=== PATIENT | male | born 1950 | race Caucasian/White ===

== ENCOUNTER 2020-01-25 08:41 | Day surgery (SDC) | payer BC, MEDICARE ==
[2020-01-25] MEDS ORDERED: Midazolam 1 MG/ML 2 ML SDV ONE (09:08)
[2020-01-25] MEDS ORDERED: fentaNYL 100 MCG/2 ML SDV ONE (09:08)
[2020-01-25] MEDS ORDERED: Propofol 200 MG/20 ML SDV ONE ×2 (09:08→09:53)
[2020-01-25] MEDS ORDERED: Dextrose 5%-Lactated Ringers 1,000 ML IV SCH (10:30)
--- NOTE | 2020-02-04 15:00 | OR ---
DATE OF PROCEDURE: 01/25/2020 SURGEON: Jasson Welch MD PREOPERATIVE DIAGNOSIS: Indications for screening colonoscopy. POSTOPERATIVE DIAGNOSIS: Normal colonoscopic examination. OPERATIVE PROCEDURE: Flexible colonoscopy. ANESTHESIA: IV sedation. INDICATION FOR PROCEDURE: A 69-year-old presenting with indication for screening colonoscopy. He has no family or personal history of colonic neoplasia. Plan is to proceed with a colonoscopy with biopsies and polypectomy as indicated. Potential risks including bleeding and perforation were discussed and the patient wishes to proceed. DETAILS OF PROCEDURE: The patient was taken to the operating room and placed in a left lateral decubitus position. IV sedation was administered, after which the initial digital rectal exam was performed which was unremarkable. Colonoscope was then passed into the rectum with retroflexion revealing uncomplicated hemorrhoidal columns. The scope was then eventually passed to the level of the cecum. The patient did have some moderately good prep with there being quite a bit of liquid stool present which would potentially cause nonvisualization of some small polyps, otherwise there was no evident pathology, specifically no diverticular disease. No areas of colitis. No polyps or other signs of neoplasia were seen. The scope was then withdrawn. The above findings were reconfirmed and the procedure then concluded. Recommendation would be to repeat the colonoscopy in 10 years, i.e. when he is around 79 assuming his health at that time remains reasonably good. Jasson Welch MD /[id number]
== END 2020-01-25 11:06 | disposition home or self-care (01) ==
LOC: JP.SDS 08:41
PROVIDERS: ATTEND Surgery
DX: Z12.11 Encounter for screening for malignant neoplasm of colon (principal); K64.9 Unspecified hemorrhoids
CPT/HCPCS: G0121; J2250; J2704; J3010; J7121

== ENCOUNTER 2020-09-06 16:27 | Emergency (ER) | payer MEDICARE ==
--- NOTE | 2020-09-06 17:25 | EDM.PDOC ---
ED HPI GENERAL MEDICAL PROBLEM - General Chief Complaint: Skin Complaint Stated Complaint: RASH ON BOTH ARMS Time Seen by Provider: 09/06/20 17:15 Source of Information: Reports: Patient, Old Records History Limitations: Reports: No Limitations - History of Present Illness INITIAL COMMENTS - FREE TEXT/NARRATIVE: 69 yo male here with a red rash on both arms. It began over a week ago following digging in weeds with short sleeve shirt on. It was itchy and he was applying topical Cortisone cream with improvement. Then a day or two ago he applied "Jewel weed" cream and now the arms are much redder, although not more itchy. He has stopped the Jewel weed cream. Is worried about cellulitis. He has not had a fever. Onset: Gradual Onset Date: 09/05/20 Duration: Day(s): (1+), Constant Location: Reports: Upper Extremity, Left, Upper Extremity, Right Quality: Reports: Dull Severity: Mild Improves with: Reports: None Worsens with: Reports: Other (? Jewel weed cream) Context: Reports: Other (See HPI) Associated Symptoms: Reports: No Other Symptoms - Related Data Allergies Allergy/AdvReac Type Severity Reaction Status Date / Time amoxicillin Allergy Severe Swollen Verified 09/06/20 17:06 Tongue Penicillins Allergy Severe Swollen Verified 09/06/20 17:06 Tongue Home Meds: Home Meds Glucosam/Homero-Msm1/C/Michael/Bosw [Glucosamine-Chondr Complx Cplt] 1 each PO DAILY 01/23/20 [History] Multivitamin with Minerals [Multiple Vitamin] 1 tab PO DAILY 01/23/20 [History] Kaleva-3 Fatty Acids [Maxepa] 500 mg PO Q48H 01/23/20 [History] Ibuprofen/Diphenhydramine Cit [Ibuprofen PM Caplet] 1 tab PO BEDTIME PRN 09/06/20 [History] Triamcinolone Acetonide [Triamcinolone Acetonide 0.1% Crm] 1 applic TOP BID #80 gm 09/06/20 [Rx] Past Medical History HEENT History: Reports: Impaired Vision Other HEENT History: wears glasses Gastrointestinal History: Reports: GERD Musculoskeletal History: Reports: None Oncologic (Cancer) History: Reports: Squamous Cell Carcinoma Dermatologic History: Reports: None - Infectious Disease History Infectious Disease History: Reports: Chicken Pox, Meningitis, Mumps, Rubella - Past Surgical History HEENT Surgical History: Reports: None GI Surgical History: Reports: Colonoscopy Musculoskeletal Surgical History: Reports: Arthroscopic Knee Oncologic Surgical History: Reports: None Dermatological Surgical History: Reports: Skin Biopsy Social & Family History - Family History GI: Reports: Colon Polyps - Tobacco Use Smoking Status *Q: Never Smoker Second Hand Smoke Exposure: No - Caffeine Use Caffeine Use: Reports: Coffee - Alcohol Use Days Per Week of Alcohol Use: 1 Number of Drinks Per Day: 1 Total Drinks Per Week: 1 - Recreational Drug Use Recreational Drug Use: No ED ROS GENERAL - Review of Systems Review Of Systems: See Below Constitutional: Reports: No Symptoms Skin: Reports: Rash (both forearms), Erythema (both arms). Denies: Pruritis Neurological: Reports: No Symptoms ED EXAM, SKIN/RASH Exam: See Below Exam Limited By: No Limitations General Appearance: Alert, WD/WN, No Apparent Distress Eye Exam: Bilateral Eye: Normal Inspection Ears: Hearing Grossly Normal Nose: Normal Inspection, No Blood Throat/Mouth: Normal Lips, Normal Voice, No Airway Compromise Head: Atraumatic, Normocephalic Respiratory/Chest: No Respiratory Distress Extremities: Normal Inspection Neurological: Alert, Oriented, CN II-XII Intact, Normal Cognition, No Motor/Sensory Deficits Psychiatric: Normal Affect, Normal Mood Skin: Warm, Dry, Intact, Erythema (of both lateral forearms with no increased warmth and no drainage. ) Location, Skin: Upper Extremity, Right, Upper Extremity, Left Characteristics: Confluent, Erythematous Associated features: No: Warmth, Tenderness, Lymphangitis Course - Vital Signs Last Recorded V/S: Last Vital Signs Temp 36.6 C 09/06/20 17:18 Pulse 65 09/06/20 17:18 Resp 16 09/06/20 17:18 BP 155/86 H 09/06/20 17: Pulse Ox 98 09/06/20 17:18 Departure - Departure Time of Disposition: 17:30 Disposition: Home, Self-Care 01 Condition: Good Clinical Impression: Skin erythema Clinical Impression: (Ruled Out): Foreign body reaction of the skin - Discharge Information *PRESCRIPTION DRUG MONITORING PROGRAM REVIEWED*: No *COPY OF PRESCRIPTION DRUG MONITORING REPORT IN PATIENT LIZET: No Prescriptions: Triamcinolone Acetonide [Triamcinolone Acetonide 0.1% Crm] 1 applic TOP BID #80 gm Referrals: Sperle,Camron J, MD [Primary Care Provider] - Additional Instructions: Apply the triamcinolone cream twice daily. Recheck if worse or not improving after 5 days. Avoid scratching. Sepsis Event Note (ED) - Evaluation Sepsis Screening Result: No Definite Risk - Focused Exam Vital Signs: Vital Signs Temp Pulse Resp BP Pulse Ox 09/06/20 17:18 36.6 C 65 16 155/86 H 98 09/06/20 17:05 36.6 C 65 16 155/86 H 98
== END 2020-09-06 17:35 | disposition home or self-care (01) ==
LOC: JP.ED 16:27
DX: L53.9 Erythematous condition, unspecified (principal); Z88.1 Allergy status to other antibiotic agents; Z88.0 Allergy status to penicillin
CPT/HCPCS: 99282

== ENCOUNTER 2022-07-01 08:24 | Day surgery (SDC) | payer MEDICARE ==
[2022-07-01] MEDS ORDERED: Acetaminophen 500 MG Tab PO ONE (09:00)
[2022-07-01] MEDS ORDERED: ceFAZolin 2 GM in Premix Bag 1 BAG IV ONE (09:00)
[2022-07-01] MEDS ORDERED: Midazolam 1 MG/ML 2 ML SDV ONE (09:19)
[2022-07-01] MEDS ORDERED: Propofol 200 MG/20 ML SDV ONE ×2 (09:19→13:16)
[2022-07-01] MEDS ORDERED: fentaNYL 100 MCG/2 ML SDV ONE ×2 (09:19→13:10)
[2022-07-01] MEDS ORDERED: Lidocaine 1% with EPINEPHrine 1:100,000 50 ML MDV ONE (10:10)
[2022-07-01] MEDS ORDERED: Bupivacaine 0.5% 30 ML SDV ONE (10:10)
[2022-07-01] MEDS ORDERED: Dextrose 5%-Lactated Ringers 1,000 ML IV SCH (10:15)
[2022-07-01] MEDS ORDERED: Ketorolac 30 MG/ML SDV ONE (13:01)
[2022-07-01] MEDS ORDERED: Lactated Ringers 1,000 ML ONE (13:32)
[2022-07-01] MEDS ORDERED: HYDROmorphone 2 MG Tab PO PRN (15:00)
== END 2022-07-01 15:50 | disposition home or self-care (01) ==
LOC: JP.SDS 08:24
PROVIDERS: ATTEND Surgery
DX: K40.30 Unilateral inguinal hernia, with obstruction, without gangrene, not specified as recurrent (principal); G64 Other disorders of peripheral nervous system; Z88.0 Allergy status to penicillin
CPT/HCPCS: 49507; A9270; C1713; C1781; J0690; J1885; J2250; J2704; J3010; J3490; J7120; J7121

== ENCOUNTER 2024-11-02 06:19 | Day surgery (SDC) | payer MEDICARE ==
[2024-11-02] MEDS: Lactated Ringers 1,000 ML IV SCH (06:49)
[2024-11-02 07:01] LABS: HEMATOCRIT 42.6 % (38.4-49.7); HEMOGLOBIN 14.5 g/dL (12.9-16.9); MEAN CORPUSCULAR HEMOGLOBIN 30.3 pg (31.6-35.5); MEAN CORPUSCULAR VOLUME 88.9 fL (81.4-99.0); RED BLOOD CELL COUNT 4.79 M/uL (4.14-5.76); WHITE BLOOD CELL COUNT,WBC 4.6 K/uL (3.2-11.0)
[2024-11-02] MEDS ORDERED: Neostigmine Methylsulfate 10 MG/10 ML MDV ONE (07:07)
[2024-11-02] MEDS ORDERED: Propofol 200 MG/20 ML SDV ONE (07:07)
[2024-11-02] MEDS ORDERED: Dexamethasone 4 MG/ML SDV ONE (07:07)
[2024-11-02] MEDS ORDERED: Succinylcholine 200 MG/10 ML MDV ONE (07:07)
[2024-11-02] MEDS ORDERED: Ondansetron 4 MG/2 ML SDV ONE (07:07)
[2024-11-02] MEDS ORDERED: Glycopyrrolate 0.2 MG/ML 5 ML MDV ONE (07:07)
[2024-11-02] MEDS ORDERED: Rocuronium 50 MG/5 ML Vial ONE (07:07)
[2024-11-02] MEDS ORDERED: fentaNYL 250 MCG/5 ML SDV ONE (07:08)
[2024-11-02 07:22] LABS: ALANINE AMINOTRANSFERASE,ALT 22 U/L (12-78); ALBUMIN 3.8 g/dL (3.4-5.0); ALKALINE PHOSPHATASE 63 U/L (46-116); ANION GAP 8.1 mmol/L (5.0-14.0); ASPARTATE AMNIOTRANSFERASE,AST 21 U/L (15-37); BILIRUBIN TOTAL 0.5 mg/dL (0.2-1.0); BLOOD UREA NITROGEN,BUN 17 mg/dL (7-18); CALCIUM 9.3 mg/dL (8.5-10.1); CARBON DIOXIDE,CO2 29 mmol/L (21-32); CHLORIDE,CL 104 mmol/L (100-108); CREATININE 1.2 mg/dL (0.8-1.3); ESTIMATED GFR 63 mL/min (>60); GLUCOSE RANDOM 89 mg/dL (74-106); POTASSIUM,K 3.9 mmol/L (3.6-5.2); PROTEIN TOTAL,TP 7.6 g/dL (6.4-8.2); SODIUM,NA 141 mmol/L (140-148)
[2024-11-02] MEDS: metroNIDAZOLE/Normal Saline 500 MG in Premix Bag 1 BAG IV ONE (07:35)
[2024-11-02] MEDS: Clindamycin in 0.9 % Sod Chlor 600 MG in Premix Bag 1 BAG IV ONE (07:55)
[2024-11-02] MEDS: Ropivacaine 35 ML, dexAMETHasone 8 MG, EPINEPHrine 0.4 MG, Sodium Chloride 0.9% 42.6 ML NERVRT SCH (08:07)
[2024-11-02] MEDS: Bupivacaine 0.5%/EPINEPHrine 1:200,000 50 ML MDV ONE (08:10)
[2024-11-02] MEDS ORDERED: fentaNYL 100 MCG/2 ML SDV ONE (08:13)
[2024-11-02] MEDS ORDERED: Lactated Ringers 1,000 ML ONE (08:59)
[2024-11-02] MEDS: Acetaminophen/HYDROcodone 325-5 MG Tab PO ONE (12:34)
== END 2024-11-02 13:00 | disposition home or self-care (01) ==
LOC: JP.SDS 06:19
PROVIDERS: ATTEND Surgery
DX: K40.30 Unilateral inguinal hernia, with obstruction, without gangrene, not specified as recurrent (principal); E78.5 Hyperlipidemia, unspecified
CPT/HCPCS: 36415; 49650; 80053; 85027; A9270; C1781; J0171; J0330; J1100; J1596; J1836; J2405; J2704; J2710; J2795; J3010; J3490; J7120; 00840-QZ